=== PATIENT | male | born 1940 | race African-American/Black ===

== ENCOUNTER 2018-11-12 13:59 | Emergency (ER) | payer OTHER ==
[~2018-11-12] VITALS: Ht 177.8 cm; Wt 77.1 kg
[~2018-11-12 13:59] MED LIST: DABI150C PO; FURO20TA3 PO; MAGN400T23 PO; SENN8.6T9 PO; TAMS0.4C36 PO
[2018-11-12 16:14] LABS: Basophils # (auto) 0.1 uL; Basophils % (auto) 1.2 % (0.0-2.0); Eosinophils # (auto) 0.1 uL; Eosinophils % (auto) 1.5 % (0.0-7.0); Hematocrit 49.1 % (41.0-53.0); Hemoglobin 16.4 g/dL (13.5-17.5); Lymphocytes # (auto) 1.2 uL; Lymphocytes % (auto) 19.8 % (10.0-50.0); Mean Corpuscular Hemoglobin 30.1 pg (28.0-32.0); Mean Corpuscular Hgb Conc. 33.4 g/dL (32.0-36.0); Mean Corpuscular Volume 89.9 fL (80.0-100.0); Monocytes # (auto) 0.6 uL; Monocytes % (auto) 10.4 % (0.0-12.0); Neutrophils # (auto) 3.9 uL; Neutrophils % (auto) 67.1 % (37.0-80.0); Nucleated Red Blood Cells % 0.1 %; Platelet Count (auto) 158 10^3/uL (140-450); Red Blood Cells 5.46 10^6/uL (4.5-5.90); Red Cell Distribution Width 14.4 % (11.8-14.3); White Blood Cell 5.9 10^3/uL (4.4-10.8)
[2018-11-12 16:18] LABS: INR 1.12 (0.9-1.15); Partial Thromboplastin Time 28.9 sec (23.78-33.04); Prothrombin Time 11.9 sec (9.27-12.13)
[2018-11-12 16:23] LABS: Albumin 3.5 g/dL (3.4-5.0); Calcium 8.4 mg/dL (8.5-10.1); Potassium 3.9 mmol/L (3.5-5.1)
[2018-11-12 16:25] LABS: BUN/Creatinine Ratio 14.3; Bilirubin, Total 3.1 mg/dL (0.2-1.0); Total Protein 7.3 g/dL (6.4-8.2)
[2018-11-12 17:19] LABS: Urine Bacteria NONE SEEN /hpf (None Seen); Urine Blood Negative /uL (Negative); Urine Mucus FEW (None Seen); Urine Specific Gravity 1.019 (1.001-1.035); Urine WBC 2 /hpf (0 - 3)
[2018-11-12 19:45] VITALS: BP 154/65
== END 2018-11-12 20:55 | disposition home or self-care (01) ==
LOC: EDBD 13:59 → ER 14:05
DX: J44.9 Chronic obstructive pulmonary disease, unspecified (principal); R06.02 Shortness of breath; I13.0 Hypertensive heart and chronic kidney disease with heart failure and stage 1 through stage 4 chronic kidney disease, or unspecified chronic kidney disease; I50.9 Heart failure, unspecified; E11.22 Type 2 diabetes mellitus with diabetic chronic kidney disease; N18.9 Chronic kidney disease, unspecified; I48.91 Unspecified atrial fibrillation; Z87.891 Personal history of nicotine dependence
CPT/HCPCS: 36415; 71045; 80053; 81001; 83880; 84443; 84484; 85025; 85379; 85610; 85730; 93005

== ENCOUNTER 2019-01-12 13:32 | Emergency (ER) | payer SELFPAY ==
[~2019-01-12] VITALS: Ht 185.4 cm; Wt 88.5 kg
[2019-01-12 13:41] VITALS: BP 155/85
[2019-01-12 14:42] LABS: Hemoglobin 14.5 g/dL (13.5-17.5); Mean Corpuscular Volume 91.1 fL (80.0-100.0)
[2019-01-12 14:51] LABS: Albumin 3.1 g/dL (3.4-5.0); Anion Gap 3 (5-15); Aspartate Aminotransferase 21 U/L (15-37); BUN/Creatinine Ratio 11.7; Basophils # (auto) 0 uL; Basophils % (auto) 0.3 % (0.0-2.0); Blood Urea Nitrogen 14 mg/dL (7-18); Calcium 7.9 mg/dL (8.5-10.1); Carbon Dioxide 32 mmol/L (21-32); Chloride 106 mmol/L (98-107); Eosinophils # (auto) 0.2 uL; Eosinophils % (auto) 3.1 % (0.0-7.0); GFR African American 76 mL/min; GFR Non-African American 63 mL/min; Glucose 64 mg/dL (74-106); Hematocrit 43.5 % (41.0-53.0); Lymphocytes # (auto) 1.1 uL; Lymphocytes % (auto) 19.7 % (10.0-50.0); Magnesium 2.2 mg/dL (1.6-2.6); Mean Corpuscular Hemoglobin 30.4 pg (28.0-32.0); Mean Corpuscular Hgb Conc. 33.3 g/dL (32.0-36.0); Monocytes # (auto) 0.9 uL; Monocytes % (auto) 15.7 % (0.0-12.0); Neutrophils # (auto) 3.3 uL; Neutrophils % (auto) 61.2 % (37.0-80.0); Nucleated Red Blood Cells % 0.1 %; Platelet Count (auto) 147 10^3/uL (140-450); Potassium 3.2 mmol/L (3.5-5.1); Red Blood Cells 4.78 10^6/uL (4.5-5.90); Red Cell Distribution Width 14.6 % (11.8-14.3); Sodium 141 mmol/L (136-145); White Blood Cell 5.4 10^3/uL (4.4-10.8)
[2019-01-12] MEDS ORDERED: ASPirin 81 mg TAB PO ONE (15:00)
[2019-01-12 15:02] LABS: Alanine Aminotransferase 15 U/L (16-61); Alkaline Phosphatase 64 U/L (45-117); Bilirubin, Total 1.6 mg/dL (0.2-1.0); Total Protein 6.5 g/dL (6.4-8.2)
[2019-01-12 15:24] LABS: INR 1.22 (0.9-1.15); Partial Thromboplastin Time 43.3 sec (23.78-33.04); Prothrombin Time 12.9 sec (9.27-12.13)
== END 2019-01-12 19:55 | disposition left against medical advice (07) ==
LOC: EDBD 13:32 → ER 13:32
DX: R07.89 Other chest pain (principal); I48.91 Unspecified atrial fibrillation; E87.6 Hypokalemia; J44.9 Chronic obstructive pulmonary disease, unspecified; I11.0 Hypertensive heart disease with heart failure; I50.9 Heart failure, unspecified
CPT/HCPCS: 36415; 71046; 80053; 83735; 83880; 84443; 84484; 85025; 85610; 85730; 94761

== ENCOUNTER 2019-02-26 10:24 | Emergency (ER) | payer OTHER ==
[~2019-02-26] VITALS: Ht 177.8 cm; Wt 113.4 kg
[2019-02-26 10:27] VITALS: BP 139/99
[2019-02-26 11:37] LABS: Basophils # (auto) 0 uL; Basophils % (auto) 0.3 % (0.0-2.0); Eosinophils # (auto) 0 uL; Eosinophils % (auto) 1.3 % (0.0-7.0); Hematocrit 39.6 % (41.0-53.0); Hemoglobin 13.2 g/dL (13.5-17.5); Lymphocytes # (auto) 0.8 uL; Lymphocytes % (auto) 20.1 % (10.0-50.0); Mean Corpuscular Hemoglobin 30.7 pg (28.0-32.0); Mean Corpuscular Hgb Conc. 33.4 g/dL (32.0-36.0); Mean Corpuscular Volume 91.9 fL (80.0-100.0); Monocytes # (auto) 0.4 uL; Monocytes % (auto) 10.3 % (0.0-12.0); Neutrophils # (auto) 2.6 uL; Nucleated Red Blood Cells % 0.1 %; Platelet Count (auto) 134 10^3/uL (140-450); Red Blood Cells 4.31 10^6/uL (4.5-5.90); Red Cell Distribution Width 14.8 % (11.8-14.3); White Blood Cell 3.8 10^3/uL (4.4-10.8)
[2019-02-26 12:10] LABS: Albumin 3.1 g/dL (3.4-5.0); Anion Gap 6 (5-15); Aspartate Aminotransferase 24 U/L (15-37); BUN/Creatinine Ratio 12.3; Blood Urea Nitrogen 16 mg/dL (7-18); Calcium 7.8 mg/dL (8.5-10.1); Carbon Dioxide 30 mmol/L (21-32); Chloride 109 mmol/L (98-107); GFR African American 69 mL/min; GFR Non-African American 57 mL/min; Glucose 86 mg/dL (74-106); Magnesium 2.6 mg/dL (1.6-2.6); Potassium 4.1 mmol/L (3.5-5.1); Sodium 145 mmol/L (136-145)
[2019-02-26 12:15] LABS: Alanine Aminotransferase 18 U/L (16-61); Alkaline Phosphatase 64 U/L (45-117); Bilirubin, Total 1.3 mg/dL (0.2-1.0); Total Protein 6.3 g/dL (6.4-8.2)
== END 2019-02-26 18:34 | disposition left against medical advice (07) ==
LOC: EDBD 10:24 → ER 10:28
DX: I48.92 Unspecified atrial flutter (principal); I13.0 Hypertensive heart and chronic kidney disease with heart failure and stage 1 through stage 4 chronic kidney disease, or unspecified chronic kidney disease; I50.30 Unspecified diastolic (congestive) heart failure; N18.9 Chronic kidney disease, unspecified; E11.22 Type 2 diabetes mellitus with diabetic chronic kidney disease; J44.9 Chronic obstructive pulmonary disease, unspecified
CPT/HCPCS: 36415; 70450; 71045; 80053; 83735; 84484; 85025; 93005

== ENCOUNTER 2019-04-15 10:59 | Emergency (ER) | payer OTHER ==
[~2019-04-15] VITALS: Ht 177.8 cm; Wt 112.0 kg
[2019-04-15 11:42] LABS: Basophils # (auto) 0 uL; Basophils % (auto) 0.6 % (0.0-2.0); Eosinophils # (auto) 0 uL; Eosinophils % (auto) 1.2 % (0.0-7.0); Hematocrit 48.2 % (41.0-53.0); Hemoglobin 16.2 g/dL (13.5-17.5); Lymphocytes # (auto) 0.9 uL; Lymphocytes % (auto) 25.5 % (10.0-50.0); Mean Corpuscular Hemoglobin 30.4 pg (28.0-32.0); Mean Corpuscular Hgb Conc. 33.7 g/dL (32.0-36.0); Mean Corpuscular Volume 90.2 fL (80.0-100.0); Monocytes # (auto) 0.3 uL; Monocytes % (auto) 8.1 % (0.0-12.0); Neutrophils # (auto) 2.3 uL; Neutrophils % (auto) 64.6 % (37.0-80.0); Nucleated Red Blood Cells % 0.1 %; Platelet Count (auto) 143 10^3/uL (140-450); Red Blood Cells 5.35 10^6/uL (4.5-5.90); Red Cell Distribution Width 13.8 % (11.8-14.3); White Blood Cell 3.6 10^3/uL (4.4-10.8)
[2019-04-15] MEDS ORDERED: IPRATROPIUM BROM 0.5 MG/2.5ML INH SOL NEB ONE (11:45)
[2019-04-15] MEDS ORDERED: ALBUTEROL SULF 2.5 MG/0.5ML(0.5%) NEB SOLN NEB ONE (11:45)
[2019-04-15] MEDS ORDERED: FUROSEMIDE 20 MG/2 ML VIAL IV ONE (11:45)
[2019-04-15 11:52] LABS: Albumin 3.4 g/dL (3.4-5.0); Anion Gap 7 (5-15); Calcium 8.6 mg/dL (8.5-10.1); Carbon Dioxide 26 mmol/L (21-32); Chloride 109 mmol/L (98-107); Glucose 107 mg/dL (74-106); Magnesium 2.4 mg/dL (1.6-2.6); Potassium 3.3 mmol/L (3.5-5.1); Sodium 142 mmol/L (136-145)
[2019-04-15 12:00] LABS: Alanine Aminotransferase 13 U/L (16-61); Alkaline Phosphatase 61 U/L (45-117); Aspartate Aminotransferase 19 U/L (15-37); Bilirubin, Total 1.8 mg/dL (0.2-1.0); Blood Urea Nitrogen 15 mg/dL (7-18); GFR African American 66 mL/min; GFR Non-African American 54 mL/min; Total Protein 6.8 g/dL (6.4-8.2)
[2019-04-15 12:03] LABS: INR 1.37 (0.9-1.15); Partial Thromboplastin Time 49.6 sec (23.64-32.05)
[2019-04-15] MEDS ORDERED: POTASSIUM CHL 20 Meq TABLET PO ONE (12:45)
[2019-04-15 12:52] LABS: Urine Bacteria NONE SEEN /hpf (None Seen); Urine Blood Negative /uL (Negative); Urine Mucus FEW (None Seen); Urine WBC 6 /hpf (0 - 3)
[2019-04-15] MEDS ORDERED: METOPROLOL TARTRATE 25 MG TAB PO ONE (13:30)
[2019-04-15 14:07] VITALS: BP 125/79
== END 2019-04-15 15:39 | disposition home or self-care (01) ==
LOC: ER 11:00
DX: J44.1 Chronic obstructive pulmonary disease with (acute) exacerbation (principal); I70.0 Atherosclerosis of aorta; E87.6 Hypokalemia; D68.9 Coagulation defect, unspecified; I48.91 Unspecified atrial fibrillation; I13.0 Hypertensive heart and chronic kidney disease with heart failure and stage 1 through stage 4 chronic kidney disease, or unspecified chronic kidney disease; E11.22 Type 2 diabetes mellitus with diabetic chronic kidney disease; N18.9 Chronic kidney disease, unspecified; I50.9 Heart failure, unspecified; Z79.899 Other long term (current) drug therapy
CPT/HCPCS: 36415; 71045; 80053; 81001; 83735; 83880; 84484; 85025; 85379; 85610; 85730; 93005; 94640; 96374; 99284; J1940; J7611; J7644

== ENCOUNTER 2019-05-31 12:28 | Inpatient (IN) | payer OTHER ==
--- NOTE | 2019-05-30 23:45 | NUR ---
Fischer catheter dc'd Order to discontinue fischer catheter and replace with 3way for cbi, meatus oozing blood, skin care provided. Fischer dc'd with clean technique following deflation of balloon. Patient tolerated well with no complaints of pain. Attempted to place 3way fischer for cbi, 2 unsuccessful attempts by MARY Gonzales and Germaine to advance catheter for 3way due to obstruction. Pt in severe pain during attempted insertion, afib [id number], patient placed on 2L NC, will medicate for pain and inform Sitter at bedside
[~2019-05-31] VITALS: Ht 177.8 cm; Wt 79.0 kg
[~2019-05-31 12:28] MED LIST changes: -DABI150C PO; +DABI150C5 PO; +SENN1TAB7 PO; -SENN8.6T9 PO
[2019-05-31] MEDS ORDERED: SODIUM CHLORIDE 0.9% 500 ML IV ONE (12:50)
[2019-05-31 13:28] LABS: Basophils # (auto) 0 uL; Basophils % (auto) 0.6 % (0.0-2.0); Eosinophils # (auto) 0 uL; Eosinophils % (auto) 1.2 % (0.0-7.0); Hematocrit 41.3 % (41.0-53.0); Hemoglobin 13.9 g/dL (13.5-17.5); Lymphocytes # (auto) 0.7 uL; Lymphocytes % (auto) 18.7 % (10.0-50.0); Mean Corpuscular Hemoglobin 30.5 pg (28.0-32.0); Mean Corpuscular Hgb Conc. 33.7 g/dL (32.0-36.0); Mean Corpuscular Volume 90.6 fL (80.0-100.0); Monocytes # (auto) 0.5 uL; Monocytes % (auto) 13.1 % (0.0-12.0); Neutrophils # (auto) 2.4 uL; Neutrophils % (auto) 66.4 % (37.0-80.0); Platelet Count (auto) 131 10^3/uL (140-450); Red Blood Cells 4.56 10^6/uL (4.5-5.90); Red Cell Distribution Width 14.7 % (11.8-14.3); White Blood Cell 3.7 10^3/uL (4.4-10.8)
[2019-05-31 13:51] LABS: Albumin 3.1 g/dL (3.4-5.0); Anion Gap 4 (5-15); Blood Urea Nitrogen 17 mg/dL (7-18); Carbon Dioxide 29 mmol/L (21-32); Chloride 109 mmol/L (98-107); Glucose 88 mg/dL (74-106); Potassium 3.4 mmol/L (3.5-5.1); Sodium 142 mmol/L (136-145)
[2019-05-31 13:57] LABS: Alanine Aminotransferase 15 U/L (16-61); Alkaline Phosphatase 55 U/L (45-117); Aspartate Aminotransferase 21 U/L (15-37); GFR African American 68 mL/min; GFR Non-African American 57 mL/min; Total Protein 6.4 g/dL (6.4-8.2)
[2019-05-31] MEDS ORDERED: SODIUM CHLORIDE 0.9% 1,000 ML IV ONE (16:00)
[2019-05-31 17:33] LABS: Urine Bacteria NONE SEEN /hpf (None Seen); Urine Blood 3+ /uL (Negative); Urine Hyaline Cast MOD /lpf (0 - 2); Urine Mucus FEW (None Seen); Urine Specific Gravity 1.025 (1.001-1.035); Urine WBC 30 /hpf (0 - 3)
[2019-05-31] MEDS ORDERED: cefTRIAXone 1GM/50ML D5W 50 ML IV ONE (18:00)
[2019-05-31] MEDS ORDERED: LORazepam 2MG/ML-1ML VIAL IV ONE ×2 (19:25→19:45)
[2019-05-31] MEDS ORDERED: LORazepam 2MG/ML-1ML VIAL ONE (19:26)
[2019-05-31] MEDS ORDERED: IPRATROPIUM BROM 0.5 MG/2.5ML INH SOL NEB ONE (19:45)
[2019-05-31] MEDS ORDERED: ALBUTEROL SULF 2.5 MG/0.5ML(0.5%) NEB SOLN NEB ONE (19:45)
--- NOTE | 2019-05-31 19:45 | NUR ---
Opening Shift Note Assumed care of patient, awake and alert x1. No S/S of distress/SOB on 2L NC or pain. Instructed on POC and to call for assistance PRN, will continue to monitor for changes Q1hr and PRN. Perdomo draining light yellow urine no clots on CBI. Sitter at bedside Addendum: 06/01/19 at 2319 by Sangeeta James RN RN wrong date 06/01 disregard note
[2019-05-31] MEDS ORDERED: SODIUM CHLORIDE 0.9% 1,000 ML IV SCH (20:55)
[2019-05-31] MEDS ORDERED: ONDANSETRON HCL 4 MG/2 ML VIAL IV PRN (21:00)
[2019-05-31] MEDS ORDERED: NITROGLYCERIN 0.4 MG SL TAB SL PRN (21:00)
[2019-05-31] MEDS ORDERED: TAMSULOSIN HYDROCHLORIDE 0.4 MG CAP PO ONE (21:00)
[2019-05-31] MEDS ORDERED: MORPHINE SULF INJ 2 MG/ML SYRINGE 1ML IV PRN (21:00)
[2019-05-31] MEDS ORDERED: hydrALAZINE HCL 20 MG/ML VL IV PRN (21:00)
[2019-05-31] MEDS: DOCUSATE SOD 100 MG CAP PO SCH (21:34)
[2019-05-31 21:44] LABS: Basophils # (auto) 0 uL; Basophils % (auto) 0.1 % (0.0-2.0); Eosinophils # (auto) 0 uL; Hematocrit 41.5 % (41.0-53.0); Lymphocytes # (auto) 0.1 uL; Lymphocytes % (auto) 1.1 % (10.0-50.0); Mean Corpuscular Hemoglobin 30.7 pg (28.0-32.0); Mean Corpuscular Hgb Conc. 33.8 g/dL (32.0-36.0); Mean Corpuscular Volume 90.9 fL (80.0-100.0); Monocytes # (auto) 0.1 uL; Neutrophils # (auto) 9.5 uL; Neutrophils % (auto) 97.8 % (37.0-80.0); Platelet Count (auto) 97 10^3/uL (140-450); Red Blood Cells 4.57 10^6/uL (4.5-5.90); Red Cell Distribution Width 14.6 % (11.8-14.3); White Blood Cell 9.7 10^3/uL (4.4-10.8)
--- NOTE | 2019-05-31 22:32 | NUR ---
Telemetry admit from ER IGNACIOMARGIE Soriano admitted to Telemetry unit . Patient oriented to Sangeeta James RN primary RN, unit, room, bed, and unit policies regarding patient care and visiting hours. Patient now on continuous telemetry monitoring, tele box # [id number] and telemetry reading on arrival to unit is afb 120's. Patient, weighed by bedscale and encouraged to call if they need something. All questions and concerns addressed, patient verbalized understanding. Note: Patient pleasantly confused x1, patient oozing from meatus after traumatic fischer insertion.
[2019-05-31 22:40] VITALS: BP 139/77
--- NOTE | 2019-05-31 23:55 | NUR ---
Called/paged Dr. HERNANDEZ called re:[address] 3[address] fischer for hematuria by CN, patient in severe pain. Waiting for call back. Continue care.
[2019-06-01] MEDS: MORPHINE SULFATE 4 MG/ML SYR/VIAL IV PRN (00:06)
--- NOTE | 2019-06-01 00:35 | NUR ---
MD Called/paged Dr. Gomes recalled after not receiving callback re: consult MD for hematuria regarding second attempt to notify of urologist of inability to place fischer 3way after 2 attempts by Charge nurse. Waiting for call back. Continue care.
--- NOTE | 2019-06-01 00:38 | NUR ---
MD Called/paged Dr. Toro called re:notify of inability to place 3way fischer for cbi after 2 attempts by Charge Janet with assistance from Germaine HERNANDEZ, inability to advance catheter and severe pain causing patient afib to elevate to afib rvr 190's, current heart rate controlled. Order received for cbc stat per md previously ordered, will place order now. Continue care.
--- NOTE | 2019-06-01 00:45 | NUR ---
Rounds Patient sleeping. No S/S of distress/SOB or pain. Will continue to monitor changes q1hr and PRN. Heart rate 98 Aflutter. Sitter at bedside for safety
--- NOTE | 2019-06-01 00:57 | NUR ---
LAB Called lab and informed Liza of pending stat cbc ordered
[2019-06-01 01:27] LABS: Basophils # (auto) 0 uL; Basophils % (auto) 0.1 % (0.0-2.0); Eosinophils # (auto) 0 uL; Hematocrit 43.2 % (41.0-53.0); Hemoglobin 14.4 g/dL (13.5-17.5); Lymphocytes # (auto) 0.2 uL; Lymphocytes % (auto) 1.2 % (10.0-50.0); Mean Corpuscular Hemoglobin 30.2 pg (28.0-32.0); Mean Corpuscular Hgb Conc. 33.3 g/dL (32.0-36.0); Mean Corpuscular Volume 90.7 fL (80.0-100.0); Monocytes # (auto) 0.4 uL; Monocytes % (auto) 2.2 % (0.0-12.0); Neutrophils # (auto) 15.5 uL; Neutrophils % (auto) 96.5 % (37.0-80.0); Platelet Count (auto) 100 10^3/uL (140-450); Red Blood Cells 4.77 10^6/uL (4.5-5.90); Red Cell Distribution Width 14.5 % (11.8-14.3)
[2019-06-01] MEDS ORDERED: METOPROLOL TARTRATE 25 MG TAB PO ONE (01:30)
[2019-06-01 02:23] VITALS: BP 139/77
[2019-06-01 05:00] VITALS: BP 108/67
[2019-06-01 05:37] LABS: Basophils # (auto) 0 uL; Basophils % (auto) 0.4 % (0.0-2.0); Eosinophils # (auto) 0.3 uL; Eosinophils % (auto) 3.3 % (0.0-7.0); Hematocrit 44.4 % (41.0-53.0); Hemoglobin 14.9 g/dL (13.5-17.5); Lymphocytes # (auto) 1.5 uL; Lymphocytes % (auto) 15.7 % (10.0-50.0); Mean Corpuscular Hemoglobin 30.6 pg (28.0-32.0); Mean Corpuscular Hgb Conc. 33.6 g/dL (32.0-36.0); Mean Corpuscular Volume 91.2 fL (80.0-100.0); Monocytes # (auto) 0.6 uL; Monocytes % (auto) 6.2 % (0.0-12.0); Neutrophils # (auto) 6.9 uL; Neutrophils % (auto) 74.4 % (37.0-80.0); Nucleated Red Blood Cells % 0.1 %; Platelet Count (auto) 195 10^3/uL (140-450); Red Blood Cells 4.87 10^6/uL (4.5-5.90); Red Cell Distribution Width 13.9 % (11.8-14.3); White Blood Cell 9.3 10^3/uL (4.4-10.8)
[2019-06-01 05:56] LABS: Potassium 3.5 mmol/L (3.5-5.1)
[2019-06-01 06:01] LABS: Calcium 8.7 mg/dL (8.5-10.1)
--- NOTE | 2019-06-01 07:17 | NUR ---
returned call Dr. Gomes returned call, updated on patient status and reason for call, orders received for Coude 18F with lidocaine gel, one attempt only, notify if unsuccessful and pt/inr stat. Endorsed order to day Amrik Bartholomew. Continue care.
--- NOTE | 2019-06-01 07:40 | NUR ---
Called/paged Dr. Gomes called re:verify if he wants to continue CBI order if attempt is successful . Waiting for call back. Continue care. Endorsed to [place] to call back in 30 minutes if no call back per answering system instructions.
--- NOTE | 2019-06-01 07:45 | NUR ---
Informed Lab of INR/PT order stat
[2019-06-01 08:10] LABS: INR 0.99 (0.9-1.15)
[2019-06-01 09:00] VITALS: BP 104/72
[2019-06-01] MEDS ORDERED: LIDOCAINE 2% JELLY 11ml (GLYDO) UR ONE (09:45)
[2019-06-01] MEDS: MAGNESIUM OXIDE 400 MG TAB PO SCH (11:34)
[2019-06-01] MEDS: METOPROLOL TARTRATE 25 MG TAB PO SCH ×2 (11:34→21:34)
--- NOTE | 2019-06-01 11:50 | NUR ---
Dr. Mehta at bedside Patient on continuous bladder irrigation. Urine is hematuric, patient is expressing red blood around the catheter at the site of the penis. This was brought to the attention of the physician. Patient is having no pain at this time. Doctor would like to clamp the irrigation at this time and discharge the patient home with home health. Will continue to monitor Q1h and PRN.
[2019-06-01] MEDS ORDERED: TAM04C PO (11:52)
[2019-06-01] MEDS ORDERED: MET25T PO (11:52)
--- NOTE | 2019-06-01 12:05 | NUR ---
Patient is very uncomfortable, squirming in pain, feels like he has to "piss" as he states. He states "oh lord this hurts." Patient is feeling pressure in the bladder region. Had to manually irrigate and flush the catheter, it was no longer running. Once the clot was irrigated the patient was more comfortable. Restarted the bladder irrigation per Dr. Mehta. He said to "run it for another half hour and then discharge the patient." Will continue with this plan of care.
--- NOTE | 2019-06-01 12:45 | NUR ---
Patient is squirming and uncomfortable, he state "I gotta piss, this hurts so bad." The continuous bladder irrigation was running but there was no output. Had to manually flush the catheter to express blood clot. Patient states "oh thank you, that is feeling much better." Continued bladder irrigation, running hematuric urine.
[2019-06-01 13:00] VITALS: BP 107/67
--- NOTE | 2019-06-01 13:15 | NUR ---
Patient is squirming in bed states "I can't take this" he is pulling at this catheter, "I have to piss." There is no output from the fischer catheter. This RN called the railroad signal technician, Shahnaz for assistance with the catheter. She assisted in manually flushing the catheter and was able to express a moderate size blood clot from the catheter. The patient is tolerating the procedure well, though uncomfortable. The patient is beginning to become more anxious stating "I can't take this." This RN explained the procedure to the patient and everything we are doing to help him. The patient states "I understand, thank you for all you do." Patient has periods of anxiety and confusion.
--- NOTE | 2019-06-01 14:10 | NUR ---
Paged Dr. Chandrakant Gomes- urology In regards to patient CBI and 4 attempts at manually flushing the blood clots from the catheter.
--- NOTE | 2019-06-01 14:38 | NUR ---
Dr. Gomes -urology returned page Dr. Gomes is not comfortable discharging the patient at this time. He would like to continue the CBI and possible do surgery and scope the patient on Monday.
--- NOTE | 2019-06-01 15:35 | NUR ---
Spoke to Dr. Mehta Updated him on Dr. Gomes, urology not wanting to discharge at this time and possible scope on Monday, and regarding the many times the fischer had to be manually flushed for blood clots, the urine bladder irrigation is much more clear at this point in time, slight tinge red. Dr. Mehta would like to keep the bladder irrigation going, and update him at 5:00pm regarding fischer catheter irrigation status, he would still like to discharge the patient possibly tonight.
--- NOTE | 2019-06-01 15:39 | NUR ---
PLEASE HOLD DISCHARGE PER DR. DIPAK HERNANDEZ. Patient catheter clotting, needs manual irrigation 5 times to move blood clots.
[2019-06-01 17:00] VITALS: BP 133/86
--- NOTE | 2019-06-01 18:30 | NUR ---
CELENA reported elevated Heart rate Report of patient heart rate 170, went to check on patient, the patient is lying still no s/s of distress. Checked patient CBI catheter, it was kinked, adjusted catheter and drained bag. Rechecked HR, it was at 103. Will continue to monitor patient Q1h and PRN.
--- NOTE | 2019-06-01 19:30 | NUR ---
Gave report to SKYLER Rutherford Patient CBI is still running, patient has had 6 bags of irrigation fluid today. Patient is starting to become a little more short of breath at this time, notified RN that patient reported being on Lasix at home, he is not on Lasix during this admission. The irrigated urine output fluid is still pink in the catheter bag, and passing occasional blood clots. There is still red blood that is passing around the meatus around the catheter. Dr. Mueller was notified during patient rounding. Patient is otherwise comfortable at this time. No s/s of distress at the end of this shift.
--- NOTE | 2019-06-01 19:45 | NUR ---
Opening Shift Note Assumed care of patient, awake and alert x1. No S/S of distress/SOB on 2L NC or pain. Instructed on POC and to call for assistance PRN, will continue to monitor for changes Q1hr and PRN. Perdomo draining light yellow urine no clots on CBI. Sitter at bedside
--- NOTE | 2019-06-01 21:00 | NUR ---
IV insertion IV access obtained, via clean sterile technique by inserting 22 gauge catheter at right forearm after 1 attempt(s). IV secured properly. No trauma to site. Patient tolerated well. NOTE:
[2019-06-01 22:00] VITALS: BP 147/84
[2019-06-01] MEDS: DOCUSATE SOD 100 MG CAP PO SCH (22:00)
--- NOTE | 2019-06-01 22:00 | NUR ---
MD Called/paged Dr. Powers called re:patient agitation, afib hr 190's-200 when trying to get up at rest 120's, patient confused, sitter at bedside. Waiting for call back. Orders received, will medicate as ordered. Continue care.
[2019-06-01] MEDS: LORazepam 2MG/ML-1ML VIAL IV PRN (22:29)
[2019-06-02] VITALS (7 sets, daily range): BP systolic 108–142; BP diastolic 68–92
--- NOTE | 2019-06-02 00:15 | NUR ---
Rounds Patient awake and alert x1. Patient anxious trying to pull at fischer catheter, hematuria present after pulling, pt removing oxygen placed back on 02 3L NC o2 100%, sitter at bedside. vs wnl bp 129/82 HR 104 bp 129/92 R 16. Will continue to monitor changes q1hr and PRN. Will medicate as ordered
[2019-06-02] MEDS: TEMAZEPAM 15 MG CAP PO PRN (00:25)
--- NOTE | 2019-06-02 01:35 | NUR ---
Rounds Patient sleeping, arousable to voice, pt off mittens at this time. No S/S of distress/SOB or pain. Will continue to monitor changes q1hr and PRN. CBI bags changed, urine yellow clear at this time. Sitter at bedside
--- NOTE | 2019-06-02 05:15 | NUR ---
Patient bathe/linen change Patient given bath. Skin integrity assessed for any changes. Linens and gown changed. Patient repositioned for comfort. Sitter at bedside. CBI draining, urine yellow with hematuria present, no clots. Pt on 3LNC, no distress noted
--- NOTE | 2019-06-02 07:40 | NUR ---
Desmond paged to deliver additional cbi saline bags, states she will come after she moves patient
--- NOTE | 2019-06-02 08:05 | NUR ---
Opening Note Assumed care of patient. He is A & O x3, he is calm and relaxed at this time, no s/s of distress. Patient breathing appears to be more labored but not in any distress at this time, oxygen saturation is 100 % on 2 L. Lung sounds are diminished in the posterior bilateral bases. Patient is otherwise comfortable at this time. CBI is running, output is still light red in color with minimal clotting.Sitter is at bedside. Bed is in low, locked position, call light within reach. Will continue to monitor Q1h and PRN.
--- NOTE | 2019-06-02 08:45 | NUR ---
Paged Dr. Mehta Made contact regarding patient HR according to police pilot, had periods of heart rate in high 170 range, patient was anxious, was giving Ativan last night. When patient sat up to eat, audible wheezes were heard by this RN. There is continued bleeding around the catheter meatal area that is bright read blood, oozing. Patient is in no distress at this time. Will await orders.
[2019-06-02 09:16] LABS: Basophils # (auto) 0 uL; Basophils % (auto) 0.3 % (0.0-2.0); Eosinophils # (auto) 0.1 uL; Eosinophils % (auto) 0.5 % (0.0-7.0); Hematocrit 39.2 % (41.0-53.0); Hemoglobin 13.1 g/dL (13.5-17.5); Lymphocytes # (auto) 0.3 uL; Lymphocytes % (auto) 2.5 % (10.0-50.0); Mean Corpuscular Hemoglobin 30.3 pg (28.0-32.0); Mean Corpuscular Hgb Conc. 33.3 g/dL (32.0-36.0); Mean Corpuscular Volume 90.9 fL (80.0-100.0); Monocytes # (auto) 0.4 uL; Monocytes % (auto) 3.7 % (0.0-12.0); Neutrophils # (auto) 9.9 uL; Nucleated Red Blood Cells % 0.1 %; Platelet Count (auto) 77 10^3/uL (140-450); Red Blood Cells 4.32 10^6/uL (4.5-5.90); Red Cell Distribution Width 14.8 % (11.8-14.3); White Blood Cell 10.7 10^3/uL (4.4-10.8)
[2019-06-02 09:35] LABS: Albumin 2.8 g/dL (3.4-5.0); BUN/Creatinine Ratio 15.1; Calcium 7.8 mg/dL (8.5-10.1); Potassium 3.7 mmol/L (3.5-5.1)
[2019-06-02 09:38] LABS: Bilirubin, Total 2.8 mg/dL (0.2-1.0); Total Protein 5.7 g/dL (6.4-8.2)
[2019-06-02] MEDS: MAGNESIUM OXIDE 400 MG TAB PO SCH (10:52)
[2019-06-02] MEDS: METOPROLOL TARTRATE 25 MG TAB PO SCH ×2 (10:52→21:45)
[2019-06-02] MEDS: BUDESONIDE (INHALATION) 0.5 MG/2 ML NEB NEB SCH ×2 (11:02→21:57)
--- NOTE | 2019-06-02 11:07 | NUR ---
Dr. Mehta at bedside Urine was clearing up, running yellow in color, clear. Doctor request to stop CBI and report if there is any retention or continued bleeding.
[2019-06-02] MEDS ORDERED: ALBUTEROL SULF 2.5 MG/0.5ML(0.5%) NEB SOLN NEB SCH (12:00)
[2019-06-02] MEDS ORDERED: IPRATROPIUM BROM 0.5 MG/2.5ML INH SOL NEB SCH (12:00)
--- NOTE | 2019-06-02 12:15 | NUR ---
Called Dr. Mehta Patient squirming in pain "oh shit, this hurts, I can't take this" and patient heart rate increased to 135, after CBI had been stopped, this RN started CBI once again and there was hematuria returning to the catheter with small blood clots. Patient much more comfortable after procedure. Dr. Mehta ordered to continue CBI and notify Dr. Gomes. Will follow thorough with orders.
[2019-06-02] MEDS ORDERED: SERT-376 PO (12:59)
[2019-06-02] MEDS ORDERED: DONE10TA40 PO (13:00)
[2019-06-02] MEDS: DILTIAZEM HCL 60 MG TAB GT SCH ×2 (15:27→21:47)
--- NOTE | 2019-06-02 16:00 | NUR ---
Dr. Gomes , urology at bedside. There will be a procedure tomorrow. Patient said "okay." Need the son to sign consents, patient has a history of dementia and current periods of confusion. His son is Thee Price [phone]. Will have them signed when orders for procedure are placed.
--- NOTE | 2019-06-02 18:40 | NUR ---
Called Thee Price, son of patient Updated him on status of patient to have procedure tomorrow, asked him if he is available in the morning to come and sign consents, he stated "yes." Asked if he is available around 8 am, he stated "yes." There is no order for procedure at this time. Will inform noc shift nurse.
--- NOTE | 2019-06-02 18:50 | NUR ---
Paged Dr. Chandrakant Gomes regarding the need for orders for the procedure tomorrow.
--- NOTE | 2019-06-02 19:30 | NUR ---
Opening Shift Note Report received from day shift RN. Assumed care of patient. Patient awake and alert x3. No S/S of distress/SOB noted and patient denies pain at this time. CBI is running, output is light yellow. Sitter is at bedside for safety. Bed is in low, locked position, call light within reach. Instructed on POC and to call for assist PRN, will continue to monitor for changes Q1hr and PRN.
[2019-06-02] MEDS: DOCUSATE SOD 100 MG CAP PO SCH (21:45)
[2019-06-02] MEDS: IPRATROPIUM BROM 0.5 MG/2.5ML INH SOL NEB PRN (21:57)
[2019-06-02] MEDS: ALBUTEROL SULF 2.5 MG/0.5ML(0.5%) NEB SOLN NEB PRN (21:57)
[2019-06-03 05:00] VITALS: BP 141/91
[2019-06-03 05:24] LABS: Basophils # (auto) 0 uL; Basophils % (auto) 0.5 % (0.0-2.0); Eosinophils # (auto) 0.1 uL; Eosinophils % (auto) 0.9 % (0.0-7.0); Hematocrit 37.3 % (41.0-53.0); Hemoglobin 12.7 g/dL (13.5-17.5); Lymphocytes # (auto) 0.5 uL; Lymphocytes % (auto) 5.9 % (10.0-50.0); Mean Corpuscular Hemoglobin 30.8 pg (28.0-32.0); Mean Corpuscular Hgb Conc. 34.1 g/dL (32.0-36.0); Mean Corpuscular Volume 90.3 fL (80.0-100.0); Monocytes # (auto) 0.7 uL; Monocytes % (auto) 8.6 % (0.0-12.0); Neutrophils # (auto) 7.1 uL; Neutrophils % (auto) 84.1 % (37.0-80.0); Platelet Count (auto) 75 10^3/uL (140-450); Red Blood Cells 4.13 10^6/uL (4.5-5.90); Red Cell Distribution Width 14.6 % (11.8-14.3); White Blood Cell 8.4 10^3/uL (4.4-10.8)
[2019-06-03 05:43] LABS: BUN/Creatinine Ratio 17.7; Magnesium 2.4 mg/dL (1.6-2.6); Potassium 3.7 mmol/L (3.5-5.1)
[2019-06-03] MEDS: DILTIAZEM HCL 60 MG TAB GT SCH ×3 (06:04→22:18)
--- NOTE | 2019-06-03 08:00 | NUR ---
Opening Shift Note Assumed care of patient, awake, alert and oriented X2, to self and surroundings. No S/S of distress/SOB or pain. Tele# 30, sinus bradycardia @ 58 bpm. IV to right forearm, 22 gauge, patent and saline locked. 3 way Perdomo catheter draining clear, yellow urine via CBI, no clots noted. Instructed on POC and to call for assist PRN, verbalized understanding but requires frequent reorienting secondary to forgetfulness. Bed locked, in lowest position, call light within reach, sitter remains at bedside for patient safety, will continue to monitor for changes Q1hr and PRN.
--- NOTE | 2019-06-03 08:02 | NUR ---
INTAKE: 3 IRRIGATION BAGS TOTALING 9000 MLS OUTPUT: 42486 MLS OF CLEAR LIGHT YELLOW FLUID
[2019-06-03 09:00] VITALS: BP 144/72
--- NOTE | 2019-06-03 09:14 | NUR ---
CBI Call received from Dr Mehta, informed CBI drainage is clear light yellow without clots. Oder received to clamp and see if patient is able to tolerate. Order followed through.
[2019-06-03] MEDS: MAGNESIUM OXIDE 400 MG TAB PO SCH (09:57)
[2019-06-03] MEDS: IPRATROPIUM BROM 0.5 MG/2.5ML INH SOL NEB PRN ×3 (09:58→23:13)
[2019-06-03] MEDS: BUDESONIDE (INHALATION) 0.5 MG/2 ML NEB NEB SCH ×2 (09:58→23:13)
[2019-06-03] MEDS: ALBUTEROL SULF 2.5 MG/0.5ML(0.5%) NEB SOLN NEB PRN ×3 (09:58→23:14)
[2019-06-03] MEDS: METOPROLOL TARTRATE 25 MG TAB PO SCH ×2 (10:35→22:19)
--- NOTE | 2019-06-03 10:45 | NUR ---
ROUNDS Dr Mehta at bedside for rounds, new order received to resume CBI. Order followed through.
[2019-06-03] MEDS: MORPHINE SULFATE 4 MG/ML SYR/VIAL IV PRN ×2 (12:04→23:38)
[2019-06-03 12:31] LABS: Potassium 3.5 mmol/L (3.5-5.1)
[2019-06-03 12:49] LABS: Albumin 2.7 g/dL (3.4-5.0); BUN/Creatinine Ratio 16.7; Bilirubin, Total 2.2 mg/dL (0.2-1.0); Calcium 7.9 mg/dL (8.5-10.1)
[2019-06-03 13:00] VITALS: BP 135/98
--- NOTE | 2019-06-03 14:27 | NUR ---
Patient taken to Pre-Op via bed, CBI running to gravity with clear, yellow urine. No distress noted upon departure.
[2019-06-03] MEDS ORDERED: CIPROFLOXACIN 400MG/200ML 200 ML IV ONE (14:36)
[2019-06-03] MEDS ORDERED: fentaNYL CITRATE 100 MCG/2 ML VL ONE (14:41)
[2019-06-03] MEDS ORDERED: MIDAZOLAM HCL 1MG/1ML-2 ML VIAL ONE (14:41)
[2019-06-03] MEDS ORDERED: SODIUM CHLORIDE LOCK 10 ML ONE (14:42)
[2019-06-03] MEDS ORDERED: PROPOFOL 10 MG/ML 20 ML IV ONE (14:42)
[2019-06-03] MEDS ORDERED: ONDANSETRON HCL 4 MG/2 ML VIAL ONE (14:42)
[2019-06-03] MEDS ORDERED: fentaNYL CITRATE 100 MCG/2 ML VL IV PRN (15:15)
[2019-06-03] MEDS ORDERED: ACCU-CHEK COMFORT CURVE STRIP VI ONE (15:15)
[2019-06-03] MEDS ORDERED: METOCLOPRAMIDE HCL 5MG/ml INJ 2ml VIAL IV PRN (15:15)
[2019-06-03] MEDS ORDERED: HYDROmorphone HCL 2 MG/ML VL IV PRN (15:15)
--- NOTE | 2019-06-03 16:52 | NUR ---
D/C planning Per consult for home health safety evaluation, RN visit, and fischer care. Contacted [facility] health Ph: ) fax: ) faxed medical records. Per Earline from [facility] pt has been accepted and will be seen within 48 hrs upon d/c. Informed Earline from [facility] will follow up tomorrow morning with authorization #. Addendum: 06/03/19 at 1655 by MICHAEL FARIAS Amended: Links added.
--- NOTE | 2019-06-03 17:15 | NUR ---
Patient returned from OR via bed, very lethargic but easily arousable to name. V/S 118/78 P 84 RR 18 O2@ 3 LPM 98% Temp 97.8 CBI running to gravity with light pink drainage, no clots noted. Sitter remains at bedside for patient safety.
[2019-06-03 17:18] VITALS: BP 118/78
--- NOTE | 2019-06-03 19:23 | NUR ---
Care endorsed to SKYLER Blackburn, night nurse.
--- NOTE | 2019-06-03 20:00 | NUR ---
[id number] PATIENT FROM DAY SHIFT RN. PATIENT RESTING IN BED. NO S/S OF DISTRESS NOTED. DENIED PAIN FOR NOW. CBI CONTINUED WITH BRIGHT RED URINE OUT, INCREASED RATE OF CBI. REORIENTED PATIENT TIME AND SITUATION. WILL CONTINUE TO REORIENT HIM. POC INSTRUCTED AND ENCOURAGED PATIENT TO CALL FOR CARPET INSTALLER HELPER IF NEEDED. BED IN LOWEST POSITION WITH SIDE RAILS UP X 2. CALL JAMISON WITHIN REACH. ALARM ON. SITTER AT BEDSIDE FOR SAFETY. CONTINUE TO MONITOR FOR CHANGES Q1H AND PRN.
[2019-06-03 22:00] VITALS: BP 106/73
[2019-06-03] MEDS: DOCUSATE SOD 100 MG CAP PO SCH (22:18)
--- NOTE | 2019-06-03 22:20 | NUR ---
ORAL MEDICATION GIVEN ORDERED. PATIENT SWALLOWED WELL. NO S/S OF ASPIRATION NOTED. CBI RUNNING WELL WITH CLEAR AND PINK URINE. DECREASED RATE OF CBI. CONTINUE TO MONITOR.
--- NOTE | 2019-06-03 23:39 | NUR ---
PATIENT C/O BACK PAIN @ 07/25. MEDICATED PATIENT ORDERED. CONTINUE TO MONITOR.
[2019-06-04] MEDS: TEMAZEPAM 15 MG CAP PO PRN ×2 (01:55→22:16)
--- NOTE | 2019-06-04 02:52 | NUR ---
PATIENT RESTING IN BED. NO S/S OF DISTRESS NOTED. CBI RUNNING CLEAR AND PINK URINE. REORIENTED PATIENT PLACE, TIME AND SITUATION. SITTER AT BEDSIDE FOR SAFETY. CONTINUE CARE.
[2019-06-04 07:48] LABS: Basophils # (auto) 0 uL; Basophils % (auto) 0.3 % (0.0-2.0); Eosinophils # (auto) 0.1 uL; Hematocrit 39.1 % (41.0-53.0); Hemoglobin 13.1 g/dL (13.5-17.5); Lymphocytes # (auto) 0.6 uL; Lymphocytes % (auto) 7.9 % (10.0-50.0); Mean Corpuscular Hemoglobin 30.5 pg (28.0-32.0); Mean Corpuscular Hgb Conc. 33.5 g/dL (32.0-36.0); Mean Corpuscular Volume 90.8 fL (80.0-100.0); Monocytes # (auto) 0.8 uL; Monocytes % (auto) 9.6 % (0.0-12.0); Neutrophils # (auto) 6.6 uL; Neutrophils % (auto) 81.2 % (37.0-80.0); Platelet Count (auto) 89 10^3/uL (140-450); Red Cell Distribution Width 14.5 % (11.8-14.3); White Blood Cell 8.2 10^3/uL (4.4-10.8)
--- NOTE | 2019-06-04 08:00 | NUR ---
Opening Shift Note Assumed care of patient, awake, alert and oriented X2, to self and surroundings. No S/S of distress/SOB or pain. Tele# 30, Atrial Flutter @ 55 bpm. IV to left hand, 20, gauge, patent and saline locked. 3 way Perdomo catheter draining clear, light pink urine to gravity via CBI, no clots noted. Instructed on POC and to call for assist PRN, verbalized understanding but requires frequent reorienting secondary to forgetfulness. Bed locked, in lowest position, call light within reach, sitter remains at bedside for patient safety, will continue to monitor for changes Q1hr and PRN.
[2019-06-04 08:02] LABS: Calcium 8.2 mg/dL (8.5-10.1); Magnesium 2.2 mg/dL (1.6-2.6); Potassium 3.7 mmol/L (3.5-5.1)
[2019-06-04 08:04] LABS: BUN/Creatinine Ratio 13.7
[2019-06-04 09:00] VITALS: BP 140/91
[2019-06-04] MEDS: METOPROLOL TARTRATE 25 MG TAB PO SCH ×3 (10:00→22:15)
[2019-06-04] MEDS: BELLADONNA ALKAL/OPIUM (16.2/30MG) RECT SUPP PR SCH (10:00)
--- NOTE | 2019-06-04 10:15 | NUR ---
Call received from Dr Mehta, order received to clamp CBI as long as patient is able to tolerate. CBI continues to drain clear yellow urine to gravity. CBI clamped, will monitor. Sitter remains at bedside for patient safety.
--- NOTE | 2019-06-04 10:50 | NUR ---
Called to room by sitter, patient becoming very agitated, thrashing in bed, Perdomo drainage now bright red, restarted CBI, medicated for pain, will continue to monitor. Sitter remains at bedside for patient safety.
--- NOTE | 2019-06-04 11:05 | NUR ---
ROUNDS Dr Lira at bedside for rounds, informed patient unable to tolerate CBI being clamped and drainage changed to bright red when clamped, verbalized understanding.
[2019-06-04] MEDS: MAGNESIUM OXIDE 400 MG TAB PO SCH (11:09)
[2019-06-04] MEDS: MORPHINE SULFATE 4 MG/ML SYR/VIAL IV PRN ×3 (11:10→21:04)
[2019-06-04] MEDS: BUDESONIDE (INHALATION) 0.5 MG/2 ML NEB NEB SCH ×2 (12:06→22:40)
[2019-06-04] MEDS: IPRATROPIUM BROM 0.5 MG/2.5ML INH SOL NEB PRN ×2 (12:06→22:40)
[2019-06-04] MEDS: ALBUTEROL SULF 2.5 MG/0.5ML(0.5%) NEB SOLN NEB PRN ×2 (12:06→22:40)
--- NOTE | 2019-06-04 12:16 | NUR ---
Per request for auth, faxed request to [facility], placed a follow up call, spoke to Echo and was provided the following auth for [facility]-[id number]. Called and spoke to Dayana at [facility] and was advised they will start care within 24-48 hours upon discharge. Addendum: 06/04/19 at 1221 by RANDOLPH DAY Amended: Links added.
[2019-06-04 13:00] VITALS: BP 141/83
[2019-06-04] MEDS: DILTIAZEM HCL 60 MG TAB GT SCH ×2 (14:00→22:15)
--- NOTE | 2019-06-04 14:15 | NUR ---
Returned from lunch, informed by covering nurse, SKYLER Jamison, that patient pulled his IV out, despite sitter at bedside. Patient has moments of confusion and agitation, but is easily reoriented. Sitter remains at the bedside for patient safety.
--- NOTE | 2019-06-04 15:40 | NUR ---
Call received from Dr Myers, Urologist, updated on patients condition, verbalized understanding.
--- NOTE | 2019-06-04 16:35 | NUR ---
IV insertion IV access obtained, via clean sterile technique by inserting 20 gauge catheter at left wrist after 1 attempt. IV secured properly. No trauma to site. Patient tolerated well.
[2019-06-04 17:00] VITALS: BP 140/79
--- NOTE | 2019-06-04 17:45 | NUR ---
Called to room again by maria c, per maria c, patient pulled IV to left wrist out, catheter intact. New IV placed to left wrist, 22 gauge, with sterile technique. Maria C remains at bedside for patient safety.
--- NOTE | 2019-06-04 19:14 | NUR ---
Care endorsed to SKYLER Blackburn, night nurse.
--- NOTE | 2019-06-04 19:48 | NUR ---
[id number] PATIENT FROM DAY SHIFT RN. PATIENT RESTING IN BED. NO S/S OF DISTRESS NOTED. DENIED PAIN FOR NOW. CBI CONTINUED DRAINING GRAVITY WITH CLEAR AND YELLOW URINE. SLOW DOWN THE RATE OF CBI. REORIENTED PATIENT TIME AND SITUATION. WILL CONTINUE TO REORIENT HIM. POC INSTRUCTED AND ENCOURAGED PATIENT TO CALL FOR WATER MECHANIC IF NEEDED. BED IN LOWEST POSITION WITH SIDE RAILS UP X 2. CALL JAMISON WITHIN REACH. ALARM ON. SITTER AT BEDSIDE FOR SAFETY. CONTINUE TO MONITOR FOR CHANGES Q1H AND PRN.
--- NOTE | 2019-06-04 21:04 | NUR ---
PATIENT AGITATED AND C/O BACK PAIN @ 04/24. MEDICATED PATIENT ORDERED. CONTINUE TO MONITOR.
[2019-06-04] MEDS: DOCUSATE SOD 100 MG CAP PO SCH (22:15)
--- NOTE | 2019-06-04 22:16 | NUR ---
ORAL MEDICATION GIVEN ORDERED. PATIENT SWALLOWED WELL. NO S/S OF ASPIRATION NOTED. CBI RUNNING WELL WITH CLEAR AND PINK URINE. INCREASED RATE OF CBI. CONTINUE TO MONITOR.
[2019-06-04 22:19] VITALS: BP 156/98
[2019-06-04] MEDS: LORazepam 2MG/ML-1ML VIAL IV PRN (23:35)
--- NOTE | 2019-06-04 23:35 | NUR ---
RECEIVED CALL FROM [employer], PATIENT HR UP TO 160S, REASSESSED BP 164/89. HR 91. PATIENT AGITATED AND TRIED TO GO OUT OF BED. CALM PATIENT DOWN. AND MEDICATED PATIENT ORDERED. CONTINUE TO MONITOR.
[2019-06-05] VITALS (13 sets, daily range): BP systolic 121–193; BP diastolic 73–112
--- NOTE | 2019-06-05 00:45 | NUR ---
REASSESSED BP 121/73, HR 81, O2 SAT 94% ON RA. PATIENT IS CALM NOW. CONTINUE TO MONITOR.
--- NOTE | 2019-06-05 03:25 | NUR ---
PATIENT RESTING IN BED. NO S/S OF DISTRESS NOTED. CBI CONTINUED WITH CLEAR AND LIGHT PINK URINE OUT. CONTINUE TO MONITOR.
--- NOTE | 2019-06-05 05:24 | NUR ---
CLEANED PATIENT. TOTAL LINEN AND PATIENT GOWN CHANGED. PATIENT TOLERATED WELL. NO S/S OF DISTRESS NOTED. CONTINUE TO MONITOR..
[2019-06-05] MEDS: DILTIAZEM HCL 60 MG TAB GT SCH ×2 (05:50→15:47)
--- NOTE | 2019-06-05 06:28 | NUR ---
PATIENT RESTING IN BED. NO S/S OF DISTRESS NOTED. CBI CONTINUED. TOTAL INPUT 50243 ML, AND OUTPUT CLEAR LIGHT PINK URINE 04300 ML. CONTINUE TO MONITOR.
[2019-06-05 06:53] LABS: Basophils # (auto) 0 uL; Basophils % (auto) 0.5 % (0.0-2.0); Eosinophils # (auto) 0.1 uL; Eosinophils % (auto) 1.1 % (0.0-7.0); Hematocrit 39.3 % (41.0-53.0); Hemoglobin 13.2 g/dL (13.5-17.5); Lymphocytes # (auto) 0.9 uL; Lymphocytes % (auto) 10.9 % (10.0-50.0); Mean Corpuscular Hemoglobin 30.5 pg (28.0-32.0); Mean Corpuscular Hgb Conc. 33.7 g/dL (32.0-36.0); Mean Corpuscular Volume 90.6 fL (80.0-100.0); Monocytes # (auto) 0.9 uL; Monocytes % (auto) 11.5 % (0.0-12.0); Neutrophils # (auto) 6.1 uL; Platelet Count (auto) 105 10^3/uL (140-450); Red Blood Cells 4.34 10^6/uL (4.5-5.90); Red Cell Distribution Width 14.6 % (11.8-14.3)
[2019-06-05 06:57] LABS: Calcium 8.4 mg/dL (8.5-10.1); Magnesium 2.1 mg/dL (1.6-2.6); Potassium 3.6 mmol/L (3.5-5.1)
[2019-06-05 07:00] LABS: BUN/Creatinine Ratio 14.2
[2019-06-05] MEDS: BUDESONIDE (INHALATION) 0.5 MG/2 ML NEB NEB SCH ×2 (10:00→19:41)
[2019-06-05] MEDS: BELLADONNA ALKAL/OPIUM (16.2/30MG) RECT SUPP PR SCH (10:00)
[2019-06-05] MEDS: MORPHINE SULFATE 4 MG/ML SYR/VIAL IV PRN (11:05)
--- NOTE | 2019-06-05 12:03 | NUR ---
UROLOGY Call placed to Dr Gomes per Dr Mehta, to inform patient has been unable to tolerate the CBI being clamped for the past three days, S/P Cystoscopy with blood clot evacuation from the bladder by Dr Gomes. Spoke to Nadege in the Urology clinic, awaiting return call from Dr Gomes. Keiryter remains at bedside for patient safety. CBI continues to run via gravity with clear, pink drainage.
--- NOTE | 2019-06-05 12:39 | NUR ---
ROUNDS Dr Mehta at bedside for rounds, plan of care discussed with patient, verbalized understanding. Sitter remains at bedside for patient safety. CBI continues to drain light red drainage to gravity.
[2019-06-05] MEDS: METOPROLOL TARTRATE 25 MG TAB PO SCH ×2 (12:45→21:56)
[2019-06-05] MEDS: MAGNESIUM OXIDE 400 MG TAB PO SCH (12:45)
--- NOTE | 2019-06-05 13:18 | NUR ---
UROLOGY Call received from Dr Tati Gomes, Urology, communication order received under no circumstance is CBI to be clamped unless order is given by Urology.
[2019-06-05] MEDS ORDERED: LEVOFLOXACIN 500MG 100 ML IV ONE (13:30)
--- NOTE | 2019-06-05 15:37 | NUR ---
Nutrition Assessment Notes please see attached link for complete assessment Est. Needs BW 78 [id number] kcal (25-30 kcal/kgBW), 78-85 gms pro (1.0-1.1 gms/kgBW). Will continue to monitor pertinent labs and reassess nutrient need prn Addendum: 06/05/19 at [address] Amended: Links added.
[2019-06-05] MEDS: LORazepam 2MG/ML-1ML VIAL IV PRN ×2 (15:50→23:33)
[2019-06-05] MEDS: DILTIAZEM HCL 60 MG TAB PO SCH ×2 (16:03→21:55)
--- NOTE | 2019-06-05 19:11 | NUR ---
Care endorsed to SKYLER Blackburn, night nurse.
--- NOTE | 2019-06-05 19:45 | NUR ---
[id number] PATIENT FROM DAY SHIFT RN. PATIENT RESTING IN BED. NO S/S OF DISTRESS NOTED. DENIED PAIN FOR NOW. CBI CONTINUED DRAINING GRAVITY WITH CLEAR AND LIGHT PINK URINE. REORIENTED PATIENT TIME AND SITUATION. WILL CONTINUE TO REORIENT HIM. POC INSTRUCTED AND ENCOURAGED PATIENT TO CALL FOR SPRINKLER TRUCK DRIVER IF NEEDED. BED IN LOWEST POSITION WITH SIDE RAILS UP X 2. CALL JAMISON WITHIN REACH. ALARM ON. SITTER AT BEDSIDE FOR SAFETY. CONTINUE TO MONITOR FOR CHANGES Q1H AND PRN.
--- NOTE | 2019-06-05 21:09 | NUR ---
FFP STARTED. PATIENT INITIAL VITALS, TEMP 98.3, HR 92, DWAYNE 162/98, RR 20. O2 SAT 97% ON RA. PATIENT A LITTLE AGITATED. CALM PATIENT DOWN. CONTINUE TO MONITOR.
[2019-06-05] MEDS: DOCUSATE SOD 100 MG CAP PO SCH (21:55)
[2019-06-05] MEDS: TEMAZEPAM 15 MG CAP PO PRN (21:56)
--- NOTE | 2019-06-05 23:00 | NUR ---
FFP COMPLETED. PATIENT TOLERATED WELL. NO S/S OF DISTRESS NOTED. VITALS STABLE, TEMP 98.7, HR 101, RR 18, BP 148/92. O2 SAT 98% ON RA. CONTINUE TO MONITOR.
--- NOTE | 2019-06-05 23:33 | NUR ---
PATIENT AGITATED, AND TRIED TO GET OUT OF BED AND PULLING IV ACCESS. HR UP TO 170S. MEDICATED PATIENT ORDERED. CONTINUE TO MONITOR.
[2019-06-06] VITALS (10 sets, daily range): BP systolic 125–154; BP diastolic 63–113
--- NOTE | 2019-06-06 03:34 | NUR ---
PATIENT RESTING IN BED. NO S/S OF DISTRESS NOTED. CBI CONTINUED WITH CLEAR AND LIGHT PINK URINE OUT. CONTINUE TO MONITOR.
[2019-06-06] MEDS: DILTIAZEM HCL 60 MG TAB PO SCH ×3 (06:12→22:03)
--- NOTE | 2019-06-06 06:34 | NUR ---
PATIENT RESTING IN BED. NO S/S OF DISTRESS NOTED. CBI CONTINUED. TOTAL INPUT 9000 ML, AND OUTPUT CLEAR LIGHT PINK URINE 9200 ML. CONTINUE TO MONITOR.
[2019-06-06 07:05] LABS: Basophils # (auto) 0 uL; Basophils % (auto) 0.4 % (0.0-2.0); Eosinophils # (auto) 0.1 uL; Eosinophils % (auto) 0.7 % (0.0-7.0); Hematocrit 43.3 % (41.0-53.0); Hemoglobin 14.4 g/dL (13.5-17.5); Lymphocytes # (auto) 1.3 uL; Lymphocytes % (auto) 12.1 % (10.0-50.0); Mean Corpuscular Hemoglobin 30.1 pg (28.0-32.0); Mean Corpuscular Hgb Conc. 33.3 g/dL (32.0-36.0); Mean Corpuscular Volume 90.6 fL (80.0-100.0); Monocytes # (auto) 1.4 uL; Monocytes % (auto) 12.7 % (0.0-12.0); Neutrophils % (auto) 74.1 % (37.0-80.0); Nucleated Red Blood Cells % 0.1 %; Platelet Count (auto) 134 10^3/uL (140-450); Red Blood Cells 4.78 10^6/uL (4.5-5.90); Red Cell Distribution Width 14.6 % (11.8-14.3); White Blood Cell 10.8 10^3/uL (4.4-10.8)
--- NOTE | 2019-06-06 07:09 | NUR ---
MD HERNANDEZ AT BEDSIDE AND CLAMPED CBI FOR 1 HOUR TO SEE THE CHANGES. PASSED TO DAY SHIFT RN FABRICIO. VERBALIZED UNDERSTANDING. CONTINUE TO MONITOR.
[2019-06-06 07:20] LABS: Calcium 8.6 mg/dL (8.5-10.1); Potassium 3.5 mmol/L (3.5-5.1)
[2019-06-06 07:22] LABS: BUN/Creatinine Ratio 12.8
[2019-06-06 07:28] LABS: INR 1.06 (0.9-1.15); Partial Thromboplastin Time 30.9 sec (23.64-32.05)
--- NOTE | 2019-06-06 07:52 | NUR ---
PLATELETS: SPOKE WITH DR. ALONZO, OBTAINED TELEPHONE ORDER FOR 2 BAGS OF PLATELETS TO BE GIVEN TODAY. PHONE ORDER READ BACK AND VERIFIED, PRIMARY RN FABRICIO NOTIFIED OF NEW ORDERS, SPOKE TO BLOOD BANK TO INFORM THEM PATIENT WOULD NEED TO BAGS OF PLATELETS.
[2019-06-06] MEDS: BELLADONNA ALKAL/OPIUM (16.2/30MG) RECT SUPP PR SCH (10:00)
[2019-06-06] MEDS: MAGNESIUM OXIDE 400 MG TAB PO SCH (10:15)
[2019-06-06] MEDS: DOCUSATE SOD 100 MG CAP PO SCH ×2 (10:16→22:04)
[2019-06-06] MEDS: METOPROLOL TARTRATE 25 MG TAB PO SCH ×2 (10:17→22:04)
[2019-06-06] MEDS: FINASTERIDE 5 MG TAB PO SCH (10:17)
[2019-06-06] MEDS: LORazepam 2MG/ML-1ML VIAL IV PRN ×2 (10:19→17:53)
[2019-06-06] MEDS: BUDESONIDE (INHALATION) 0.5 MG/2 ML NEB NEB SCH ×2 (10:51→19:39)
[2019-06-06] MEDS: IPRATROPIUM BROM 0.5 MG/2.5ML INH SOL NEB PRN ×2 (10:51→19:38)
[2019-06-06] MEDS: ALBUTEROL SULF 2.5 MG/0.5ML(0.5%) NEB SOLN NEB PRN ×2 (10:51→19:39)
[2019-06-06] MEDS: OXYBUTYNIN CHL 5 MG TAB PO SCH ×2 (14:50→22:04)
--- NOTE | 2019-06-06 15:10 | NUR ---
assessment Patient is a 78 year old male who is confused. Prior to admission patient lived home with his son Thee and functioned with his assistance. Patient has a fww for home use. Per Thee patients PCP is Dr Sharp. Thee informed me patient has a home health nurse, but forgot the name of the company. Thee informed me he will call me with the name when he returns home. I informed Macy lizama will need a home health resumption on discharge. Thee verbalized understanding and agreed to discharge plan home. Addendum: 06/06/19 at 1514 by Sayda MORIN Amended: Links added.
--- NOTE | 2019-06-06 15:20 | NUR ---
Contacted [facility] case management department at [phone] regarding status of transfer but was sent to [employer]. Left message requesting information on transfer for higher level of care and my contact information. Notified nurse of the above. Will continue to followup.
--- NOTE | 2019-06-06 19:10 | NUR ---
opening shift note Assumed care of patient who is A&O x2. Disoriented to time and situation. Patient is currently on room air with no s/s of SOB or distress. Denies pain at this time. 3-way fischer catheter in place and draining to gravity. output is pink tinged. Patietn is on continuous cardiac monitoring. Bed is in low locked position and side rails are up x2. Sitter is at the bedside for patient safety. Will continue to monitor PRN.
--- NOTE | 2019-06-06 19:54 | NUR ---
Received call from lunchroom monitor tech reporting heart rate in the 160s. Patient denies chest pain at this time. Vital signs are as follows: temp: 97.5 RR: 18 HR: 107 BP: 154/78 spo2: 99% on RA. Will continue to monitor for changes.
--- NOTE | 2019-06-06 21:48 | NUR ---
Received call from business technology analyst reporting heart rate in the 200s. Patient Denies chest pain at this time. No s/s of distress. Vital signs are as follows: Temp: 97.9 RR: 19 HR: 82 BP: 153/78 Spo2: 97% on RA. EKG performed. No changes indicated as compared to previous EKG on 05/31/19. Will continue to monitor Q 1hr for changes.
[2019-06-06] MEDS: TEMAZEPAM 15 MG CAP PO PRN (22:04)
[2019-06-06] MEDS: LEVOFLOXACIN 500MG 100 ML IV SCH (22:05)
--- NOTE | 2019-06-06 23:09 | NUR ---
Patients heart rate increased to 200s. Vital signs are as follows: Temp: 98.0 RR: 24 HR: 90 BP: 144/72. Sitter reports that when patient states he feels the need to void is when his heart rate is increasing. Bladder scan performed and 141ml urine was detected in the bladder. Perdomo catheter flushed with 60ml sterile water with 55ml return of pink tinged urine. Will continue to monitor Q 1hr and PRN.
--- NOTE | 2019-06-07 00:45 | NUR ---
600 ml of pink tinged urine emptied from fischer catheter bag.
[2019-06-07] MEDS: LORazepam 2MG/ML-1ML VIAL IV PRN ×3 (01:04→15:31)
--- NOTE | 2019-06-07 02:51 | NUR ---
Bed linens changed d/t leakage of pink tinged urine around catheter. 5ml NS added to balloon to reduce leakage. There is 30ml pink tinged urine in collection bag at this time. Will continue monitoring urine output Q 1 hour.
--- NOTE | 2019-06-07 04:23 | NUR ---
30ml in urinary catheter collection bag. Bladder scan performed showing 144ml of urine in the bladder. Catheter flushed with 55ml sterile water, with 55ml return of clear pink tinged urine. patient provided water and encouraged to drink to thirst.
[2019-06-07 05:19] VITALS: BP 149/83
[2019-06-07] MEDS: OXYBUTYNIN CHL 5 MG TAB PO SCH ×3 (06:19→21:59)
[2019-06-07] MEDS: DILTIAZEM HCL 60 MG TAB PO SCH ×3 (06:19→21:58)
[2019-06-07 06:34] LABS: Basophils # (auto) 0.1 uL; Basophils % (auto) 0.5 % (0.0-2.0); Eosinophils # (auto) 0 uL; Eosinophils % (auto) 0.2 % (0.0-7.0); Hemoglobin 14.5 g/dL (13.5-17.5); Lymphocytes # (auto) 1.5 uL; Lymphocytes % (auto) 11.9 % (10.0-50.0); Mean Corpuscular Hemoglobin 30.3 pg (28.0-32.0); Mean Corpuscular Hgb Conc. 33.8 g/dL (32.0-36.0); Mean Corpuscular Volume 89.5 fL (80.0-100.0); Monocytes # (auto) 1.6 uL; Monocytes % (auto) 12.4 % (0.0-12.0); Neutrophils # (auto) 9.7 uL; Platelet Count (auto) 199 10^3/uL (140-450); Red Cell Distribution Width 14.6 % (11.8-14.3); White Blood Cell 12.9 10^3/uL (4.4-10.8)
[2019-06-07 06:40] LABS: Calcium 8.5 mg/dL (8.5-10.1); Potassium 3.7 mmol/L (3.5-5.1)
[2019-06-07 06:43] LABS: BUN/Creatinine Ratio 15.9
--- NOTE | 2019-06-07 07:35 | NUR ---
06/06/19 Dr richard requested that patient went to higher level of care and would inform Dr serna himself Bernard HOLLAND
[2019-06-07 08:33] VITALS: BP 156/109
--- NOTE | 2019-06-07 09:18 | NUR ---
PT ASSESSED FOR PRN HHN TX. PT IS ON ROOM AIR, SPO2 97%, HR 129, RR 20. NO S/S OF RESPIRATORY DISTRESS. PT AWARE TO HAVE RT PAGED IF TX INDICATED. WILL CONTINUE TO MONITOR.
[2019-06-07] MEDS: BELLADONNA ALKAL/OPIUM (16.2/30MG) RECT SUPP PR SCH (10:00)
[2019-06-07] MEDS: LEVOFLOXACIN 500MG 100 ML IV SCH (10:00)
[2019-06-07] MEDS: BUDESONIDE (INHALATION) 0.5 MG/2 ML NEB NEB SCH ×2 (10:00→19:22)
[2019-06-07] MEDS ORDERED: SODIUM CHLORIDE 0.9% 1,000 ML IV SCH (10:15)
[2019-06-07] MEDS: DOCUSATE SOD 100 MG CAP PO SCH ×2 (11:02→21:59)
[2019-06-07] MEDS: MAGNESIUM OXIDE 400 MG TAB PO SCH (11:02)
[2019-06-07] MEDS: FINASTERIDE 5 MG TAB PO SCH (11:02)
[2019-06-07] MEDS: METOPROLOL TARTRATE 25 MG TAB PO SCH ×2 (11:03→21:59)
--- NOTE | 2019-06-07 11:59 | NUR ---
Contacted [facility] case management dept regarding status of transfer. Spoke with Nuzhat who stated she is awaiting to hear back from [facility] on bed status. States she will notify me when bed is available and provide information on transportation.
[2019-06-07 13:00] VITALS: BP 128/86
[2019-06-07 17:00] VITALS: BP 135/86
[2019-06-07 20:20] VITALS: BP 157/92
[2019-06-07 20:26] VITALS: BP 157/92
--- NOTE | 2019-06-07 20:30 | NUR ---
SKYLER Nicole called [facility] to follow up on patient transfer status to [facility]. Per Nuzhat at [facility], patient has been accepted to the facility but is waiting for a call back from [facility] with a bed number so transport can be arranged but at this time there is no bed and is waiting for a call back from [facility]. Per Nuzhat, transport can go tonight or tomorrow morning but will call [facility] as soon as she hears back from [facility]. SKYLER Nicole waiting for further update on patient transfer status.
--- NOTE | 2019-06-07 20:50 | NUR ---
SKYLER Nicole Received call from [facility] with a bed number 325B, accepting Rafael Garza. RN called [facility] and spoke with Ashkan to give an update on patient transfer status and bed number. [facility] will be transferring patient.
--- NOTE | 2019-06-07 21:00 | NUR ---
SKYLER Nicole spoke with son regarding patients transfer and son approved of transfer and gave the okay for patient to be transferred. Son updated with patient new room number and location of transfer.
--- NOTE | 2019-06-07 21:40 | NUR ---
SKYLER Nicole called [facility] and spoke with Renee HOLLAND and gave report to her regarding the patient.
--- NOTE | 2019-06-07 23:24 | NUR ---
Patient transferred via [facility]. Patient comfortable and pain free at this time.
== END 2019-06-07 23:24 | disposition short-term general hospital (02) | DRG 699 ==
LOC: EDBD 12:28 → ER 12:31 → TELE 12:32 → TELE-WESTW 22:32
PROVIDERS: ADMIT Hospitalist; ATTEND Hospitalist
PROC: 0TCD8ZZ Extirpation of Matter from Urethra, Via Natural or Artificial Opening Endoscopic (ICD-10-PCS; 2019-06-03)
PROC: 30233K1 Transfusion of Nonautologous Frozen Plasma into Peripheral Vein, Percutaneous Approach (ICD-10-PCS; principal; 2019-06-05)
PROC: 30233R1 Transfusion of Nonautologous Platelets into Peripheral Vein, Percutaneous Approach (ICD-10-PCS; 2019-06-06)
DX: T83.83XA Hemorrhage due to genitourinary prosthetic devices, implants and grafts, initial encounter (principal); I50.42 Chronic combined systolic (congestive) and diastolic (congestive) heart failure; I13.0 Hypertensive heart and chronic kidney disease with heart failure and stage 1 through stage 4 chronic kidney disease, or unspecified chronic kidney disease; N30.01 Acute cystitis with hematuria; I42.9 Cardiomyopathy, unspecified; E87.6 Hypokalemia; N40.1 Benign prostatic hyperplasia with lower urinary tract symptoms; J44.9 Chronic obstructive pulmonary disease, unspecified; I48.2 Chronic atrial fibrillation; N18.2 Chronic kidney disease, stage 2 (mild); E11.22 Type 2 diabetes mellitus with diabetic chronic kidney disease; F03.90 Unspecified dementia, unspecified severity, without behavioral disturbance, psychotic disturbance, mood disturbance, and anxiety; N40.0 Benign prostatic hyperplasia without lower urinary tract symptoms; D69.6 Thrombocytopenia, unspecified; Y83.8 Other surgical procedures as the cause of abnormal reaction of the patient, or of later complication, without mention of misadventure at the time of the procedure; F17.210 Nicotine dependence, cigarettes, uncomplicated; K57.30 Diverticulosis of large intestine without perforation or abscess without bleeding; N32.89 Other specified disorders of bladder; N36.5 Urethral false passage; K80.20 Calculus of gallbladder without cholecystitis without obstruction; F41.9 Anxiety disorder, unspecified; G47.00 Insomnia, unspecified; K59.09 Other constipation; F32.9 Major depressive disorder, single episode, unspecified; I25.10 Atherosclerotic heart disease of native coronary artery without angina pectoris; R33.8 Other retention of urine; Y92.89 Other specified places as the place of occurrence of the external cause; Z79.01 Long term (current) use of anticoagulants; Z79.02 Long term (current) use of antithrombotics/antiplatelets; Z82.49 Family history of ischemic heart disease and other diseases of the circulatory system; Z83.3 Family history of diabetes mellitus; Z91.14 Patient's other noncompliance with medication regimen; Z79.899 Other long term (current) drug therapy; Z98.61 Coronary angioplasty status
CPT/HCPCS: 36415; 51702; 71045; 74176; 76705; 80048; 80053; 81001; 82962; 83615; 83735; 84484; 85025; 85045; 85610; 85730; 86850; 86900; 86901; 87081; 87086; 93005; 94640; 94761; 96365; 96375; G0378; J0696; J1956; J2250; J2405; J2704

== ENCOUNTER 2019-06-13 17:07 | Emergency (ER) | payer OTHER ==
[~2019-06-13] VITALS: Ht 177.8 cm; Wt 113.4 kg
[~2019-06-13 17:07] MED LIST changes: -DABI150C5 PO; +DONE10TA40 PO; -FURO20TA3 PO; -MAGN400T23 PO; +MET25T PO; -SENN1TAB7 PO; +SERT-376 PO; +TAM04C PO; -TAMS0.4C36 PO
[2019-06-13] MEDS ORDERED: SODIUM CHLORIDE 0.9% 1,000 ML IV ONE (18:15)
[2019-06-13 18:33] LABS: Basophils # (auto) 0.1 uL; Basophils % (auto) 0.5 % (0.0-2.0); Eosinophils # (auto) 0 uL; Eosinophils % (auto) 0.2 % (0.0-7.0); Hematocrit 42.4 % (41.0-53.0); Hemoglobin 13.9 g/dL (13.5-17.5); Lymphocytes # (auto) 1.2 uL; Lymphocytes % (auto) 8.7 % (10.0-50.0); Mean Corpuscular Hemoglobin 29.8 pg (28.0-32.0); Mean Corpuscular Hgb Conc. 32.7 g/dL (32.0-36.0); Mean Corpuscular Volume 91.3 fL (80.0-100.0); Monocytes # (auto) 1.1 uL; Monocytes % (auto) 8.1 % (0.0-12.0); Neutrophils # (auto) 10.9 uL; Neutrophils % (auto) 82.5 % (37.0-80.0); Platelet Count (auto) 292 10^3/uL (140-450); Red Blood Cells 4.65 10^6/uL (4.5-5.90); Red Cell Distribution Width 14.3 % (11.8-14.3); White Blood Cell 13.3 10^3/uL (4.4-10.8)
[2019-06-13] MEDS ORDERED: DILTIAZEM HCL 25 MG/5 ML VIAL IV ONE (18:45)
[2019-06-13] MEDS ORDERED: DILTIAZEM HCL 60 MG TAB PO ONE (18:45)
[2019-06-13 18:50] LABS: Albumin 3.1 g/dL (3.4-5.0); Anion Gap 8 (5-15); Blood Urea Nitrogen 35 mg/dL (7-18); Calcium 8.5 mg/dL (8.5-10.1); Carbon Dioxide 25 mmol/L (21-32); Chloride 108 mmol/L (98-107); Glucose 93 mg/dL (74-106); Potassium 4.2 mmol/L (3.5-5.1); Sodium 141 mmol/L (136-145)
[2019-06-13 18:56] LABS: Alanine Aminotransferase 15 U/L (16-61); Alkaline Phosphatase 50 U/L (45-117); Aspartate Aminotransferase 23 U/L (15-37); BUN/Creatinine Ratio 16.8; Bilirubin, Total 2.5 mg/dL (0.2-1.0); GFR African American 40 mL/min; GFR Non-African American 33 mL/min; Total Protein 7.6 g/dL (6.4-8.2)
[2019-06-13 21:00] VITALS: BP 120/78
== END 2019-06-13 21:47 | disposition home or self-care (01) ==
LOC: ER 17:07 → EDBD 17:07 → ER 21:47
DX: I48.2 Chronic atrial fibrillation (principal); E11.22 Type 2 diabetes mellitus with diabetic chronic kidney disease; I13.0 Hypertensive heart and chronic kidney disease with heart failure and stage 1 through stage 4 chronic kidney disease, or unspecified chronic kidney disease; N18.9 Chronic kidney disease, unspecified; I50.89 Other heart failure; J44.9 Chronic obstructive pulmonary disease, unspecified; F17.210 Nicotine dependence, cigarettes, uncomplicated; Z98.61 Coronary angioplasty status
CPT/HCPCS: 36415; 71045; 80053; 83880; 84484; 85025; 93005; 96374; 99284; J7030

== ENCOUNTER 2020-02-21 14:19 | Emergency (ER) | payer MEDICARE, OTHER ==
[2020-02-21 14:22] VITALS: BP 149/89
== END 2020-02-21 15:08 | disposition left against medical advice (07) ==
LOC: EDBD 14:19 → ER 14:19
DX: R06.02 Shortness of breath (principal); Z53.21 Procedure and treatment not carried out due to patient leaving prior to being seen by health care provider

== ENCOUNTER 2021-10-22 14:10 | Emergency (ER) | payer OTHER ==
[~2021-10-22] VITALS: Ht 182.9 cm; Wt 99.8 kg
[~2021-10-22 14:10] MED LIST changes: -DONE10TA40 PO; +DONE1TAB88 PO
[2021-10-22] MEDS ORDERED: ASPirin 81 mg TAB PO ONE (14:45)
[2021-10-22 15:13] VITALS: BP 138/98
[2021-10-23] MEDS ORDERED: NITROGLYCERIN 0.4 MG SL TAB SL ONE (10:00)
== END 2021-10-22 17:30 | disposition home or self-care (01) ==
LOC: ER 14:10 → EDBD 14:10 → ER 17:30
DX: R07.89 Other chest pain (principal); F03.90 Unspecified dementia, unspecified severity, without behavioral disturbance, psychotic disturbance, mood disturbance, and anxiety; R51.9 Headache, unspecified; J44.9 Chronic obstructive pulmonary disease, unspecified; E11.9 Type 2 diabetes mellitus without complications; I10 Essential (primary) hypertension; F17.210 Nicotine dependence, cigarettes, uncomplicated

== ENCOUNTER 2021-11-02 05:53 | Inpatient (IN) | payer OTHER ==
[~2021-11-02] VITALS: Ht 182.9 cm; Wt 68.0 kg
[2021-11-02] MEDS ORDERED: SODIUM CHLORIDE 0.9% 1,000 ML IV ONE ×2 (08:30→15:30)
[2021-11-02] MEDS ORDERED: cefTRIAXone 1GM/50ML D5W 50 ML IV ONE (08:30)
[2021-11-02] MEDS ORDERED: LORazepam 2MG/ML-1ML VIAL IV ONE ×2 (09:15→09:45)
[2021-11-02] MEDS ORDERED: dilTIAZem 25 MG/5 ML VIAL IV ONE ×2 (09:32→09:45)
[2021-11-02] MEDS ORDERED: HALOPERIDOL LACTATE 5 MG/ML INJ VIAL IM ONE (09:45)
[2021-11-02 10:43] LABS: Lactic Acid w/Reflex 6.4 mmol/L (0.4-2.0)
[2021-11-02 10:48] LABS: INR 1.4 (0.9-1.15); Partial Thromboplastin Time 25.2 sec (23.6-33.0); Potassium 4.8 mmol/L (3.5-5.1)
[2021-11-02 10:51] LABS: Amphetamine Screen, Urine NEGATIVE (NEGATIVE); Barbiturate Scree,Urine NEGATIVE (NEGATIVE); Benzodiazephine Screen, Urine NEGATIVE (NEGATIVE); Cannabinoid Screen, Urine NEGATIVE (NEGATIVE); Cocaine Screen, Urine NEGATIVE (NEGATIVE); Opiate Scree,Urine NEGATIVE (NEGATIVE); Phencyclidine Screen, Urine NEGATIVE (NEGATIVE)
[2021-11-02 10:54] LABS: Blood Alcohol < 3.0 mg/dL (0-5)
[2021-11-02] MEDS ORDERED: dilTIAZem 125mg/125ml BAG KIT 125 ML IV ONE (11:00)
[2021-11-02 11:01] LABS: Urine Bacteria NONE SEEN /hpf (None Seen); Urine Blood 2+ /uL (Negative); Urine Specific Gravity 1.021 (1.001-1.035); Urine WBC 29 /hpf (0 - 3)
[2021-11-02 11:02] LABS: Albumin 3.2 g/dL (3.4-5.0); BUN/Creatinine Ratio 21.5; Bilirubin, Total 2.2 mg/dL (0.2-1.0); Calcium 9.1 mg/dL (8.5-10.1); Total Protein 7.9 g/dL (6.4-8.2)
[2021-11-02 11:03] LABS: CRP High Sensitivity 4.14 mg/dL (< 0.3)
[2021-11-02 11:06] LABS: Basophils # (auto) 0 10 ^3/uL (0-0.2); Eosinophils # (auto) 0 10 ^3/uL (0-0.8); Lymphocytes # (auto) 0.4 10 ^3/uL (0.4-5.4); Mean Corpuscular Hemoglobin 30.1 pg (28.0-32.0); Mean Corpuscular Hgb Conc. 32.8 g/dL (32.0-36.0); Mean Corpuscular Volume 91.9 fL (80.0-100.0); Monocytes # (auto) 1.1 10 ^3/uL (0-1.3); Monocytes % (auto) 10.6 % (0.0-12.0); Neutrophils # (auto) 9.1 10 ^3/uL (1.6-8.6); Neutrophils % (auto) 85.4 % (37.0-80.0); Nucleated Red Blood Cells % 0.6 %; Red Blood Cells 6.64 10^6/uL (4.5-5.90); Red Cell Distribution Width 13.9 % (11.8-14.3); White Blood Cell 10.6 10^3/uL (4.4-10.8)
[2021-11-02] MEDS ORDERED: ACETAMINOPHEN 325 MG TAB PO PRN (15:30)
[2021-11-02] MEDS ORDERED: ONDANSETRON HCL 4 MG/2 ML VIAL IV PRN (15:30)
[2021-11-02] MEDS ORDERED: SODIUM CHLORIDE 0.9% 1,000 ML IV SCH (15:30)
[2021-11-02] MEDS: METOPROLOL TARTRATE 25 MG TAB PO SCH ×2 (16:00→22:00)
[2021-11-02] MEDS: METOPROLOL TARTRATE 1MG/1ML-5ML VIAL IV PRN ×2 (16:09→22:32)
[2021-11-02 17:20] LABS: Creatine Kinase IFCC 1285 U/L (39-308)
[2021-11-02] MEDS: SOD CHL 0.45% 1,000 ML IV SCH (17:35)
[2021-11-02 23:15] LABS: Protein, Urine 125.7 mg/dL (0.0-11.9)
[2021-11-03] MEDS: METOPROLOL TARTRATE 1MG/1ML-5ML VIAL IV PRN ×5 (01:30→17:57)
[2021-11-03] MEDS: SOD CHL 0.45% 1,000 ML IV SCH ×3 (02:56→20:00)
[2021-11-03] MEDS ORDERED: HALOPERIDOL LACTATE 5 MG/ML INJ VIAL IM ONE (03:45)
[2021-11-03] MEDS ORDERED: HALOPERIDOL LACTATE 5 MG/ML INJ VIAL ONE (03:51)
[2021-11-03 05:08] LABS: Basophils # (auto) 0 10 ^3/uL (0-0.2); Basophils % (auto) 0.1 % (0.0-2.0); Eosinophils # (auto) 0 10 ^3/uL (0-0.8); Lymphocytes # (auto) 0.7 10 ^3/uL (0.4-5.4); Nucleated Red Blood Cells % 0.1 %; White Blood Cell 14.7 10^3/uL (4.4-10.8)
[2021-11-03 05:10] LABS: Hemoglobin 17.6 g/dL (13.5-17.5); Lymphocytes % (auto) 4.7 % (10.0-50.0); Mean Corpuscular Hemoglobin 30.4 pg (28.0-32.0); Mean Corpuscular Hgb Conc. 33.1 g/dL (32.0-36.0); Mean Corpuscular Volume 91.7 fL (80.0-100.0); Monocytes # (auto) 1.4 10 ^3/uL (0-1.3); Monocytes % (auto) 9.3 % (0.0-12.0); Neutrophils # (auto) 12.6 10 ^3/uL (1.6-8.6); Neutrophils % (auto) 85.9 % (37.0-80.0); Red Blood Cells 5.78 10^6/uL (4.5-5.90); Red Cell Distribution Width 14.2 % (11.8-14.3)
[2021-11-03 05:30] LABS: Potassium 4.3 mmol/L (3.5-5.1)
[2021-11-03 05:44] LABS: Albumin 2.7 g/dL (3.4-5.0); BUN/Creatinine Ratio 24.9; Bilirubin, Direct 0.3 mg/dL (0-0.2); Calcium 8.4 mg/dL (8.5-10.1); Total Protein 6.7 g/dL (6.4-8.2)
[2021-11-03 05:46] LABS: Lactic Acid w/Reflex 2.3 mmol/L (0.4-2.0)
[2021-11-03 06:21] LABS: Bilirubin, Total 1.1 mg/dL (0.2-1.0)
[2021-11-03] MEDS: METOPROLOL TARTRATE 25 MG TAB PO SCH ×2 (09:10→22:45)
[2021-11-03] MEDS ORDERED: SODIUM CHLORIDE 0.9% 1,000 ML IV ONE (12:00)
[2021-11-03] MEDS ORDERED: AMIODARONE HCL 150 MG in D5W 5% 100 ML IV ONE (21:45)
[2021-11-03] MEDS ORDERED: AMIODARONE 450mg/250ml AE 250 ML IV SCH (22:00)
[2021-11-03] MEDS: HALOPERIDOL LACTATE 5 MG/ML INJ VIAL IM PRN (22:21)
[2021-11-03] MEDS ORDERED: AMIODARONE HCL (50 MG/ ML) 3 ML VIAL IV ONE (22:26)
[2021-11-03 22:41] LABS: Folate (Folic Acid) 7.14 ng/mL (5.38-24)
[2021-11-03] MEDS: MIRTAZAPINE 30 MG TAB PO SCH (22:45)
[2021-11-04] MEDS ORDERED: AMIODARONE 450mg/250ml AE 250 ML IV SCH (04:00)
[2021-11-04] MEDS: SOD CHL 0.45% 1,000 ML IV SCH ×4 (07:45→19:52)
[2021-11-04] MEDS ORDERED: SODIUM CHLORIDE 0.9% 1,000 ML IV ONE (10:30)
[2021-11-04] MEDS: METOPROLOL TARTRATE 25 MG TAB PO SCH ×2 (10:30→22:00)
[2021-11-04] MEDS: HALOPERIDOL LACTATE 5 MG/ML INJ VIAL IM PRN (11:00)
[2021-11-04] MEDS: AMIODARONE HCL 200 MG TAB PO SCH ×2 (11:15→22:00)
[2021-11-04 11:17] LABS: Hepatitis C Antibody Negative (Negative)
[2021-11-04] MEDS ORDERED: LORazepam 2MG/ML-1ML VIAL IV PRN (12:00)
[2021-11-04] MEDS: MIRTAZAPINE 30 MG TAB PO SCH (22:00)
[2021-11-05 01:49] LABS: Basophils # (auto) 0 10 ^3/uL (0-0.2); Basophils % (auto) 0.1 % (0.0-2.0); Eosinophils # (auto) 0 10 ^3/uL (0-0.8); Hematocrit 48.2 % (41.0-53.0); Hemoglobin 15.7 g/dL (13.5-17.5); Lymphocytes # (auto) 0.4 10 ^3/uL (0.4-5.4); Lymphocytes % (auto) 5.3 % (10.0-50.0); Mean Corpuscular Hemoglobin 29.8 pg (28.0-32.0); Mean Corpuscular Hgb Conc. 32.6 g/dL (32.0-36.0); Mean Corpuscular Volume 91.4 fL (80.0-100.0); Monocytes # (auto) 0.9 10 ^3/uL (0-1.3); Monocytes % (auto) 10.8 % (0.0-12.0); Neutrophils # (auto) 6.9 10 ^3/uL (1.6-8.6); Neutrophils % (auto) 83.8 % (37.0-80.0); Red Blood Cells 5.27 10^6/uL (4.5-5.90); Red Cell Distribution Width 13.9 % (11.8-14.3); White Blood Cell 8.3 10^3/uL (4.4-10.8)
[2021-11-05 02:15] LABS: BUN/Creatinine Ratio 28.2; Calcium 8.1 mg/dL (8.5-10.1); Magnesium 2.5 mg/dL (1.6-2.6); Potassium 4.1 mmol/L (3.5-5.1)
[2021-11-05] MEDS: SOD CHL 0.45% 1,000 ML IV SCH ×2 (04:04→12:06)
[2021-11-05] MEDS ORDERED: MORPHINE SULFATE INJECTION 2 MG/ML SYRG IV PRN (05:45)
[2021-11-05] MEDS: HALOPERIDOL LACTATE 5 MG/ML INJ VIAL IM PRN ×2 (06:12→11:47)
[2021-11-05] MEDS: LORazepam 2MG/ML-1ML VIAL IV PRN ×2 (06:12→11:48)
[2021-11-05] MEDS ORDERED: AMIO200T4 PO (09:35)
[2021-11-05] MEDS ORDERED: MIR30T PO (09:35)
[2021-11-05] MEDS: METOPROLOL TARTRATE 25 MG TAB PO SCH (10:00)
[2021-11-05] MEDS: AMIODARONE HCL 200 MG TAB PO SCH (10:00)
[2021-11-05] MEDS: METOPROLOL TARTRATE 1MG/1ML-5ML VIAL IV PRN (11:50)
[2021-11-05] MEDS ORDERED: SOD CHL 0.45% 1,000 ML IV SCH (18:30)
[2021-11-05 22:30] VITALS: BP 147/93
== END 2021-11-05 22:31 | disposition hospice, home (50) | DRG 871 ==
LOC: ER 05:53 → EDBD 05:53 → TELE 15:23
PROVIDERS: ADMIT Internal Medicine; ATTEND Internal Medicine
PROC: 05H933Z Insertion of Infusion Device into Right Brachial Vein, Percutaneous Approach (ICD-10-PCS; principal; 2021-11-02)
PROC: B54MZZA Ultrasonography of Right Upper Extremity Veins, Guidance (ICD-10-PCS; 2021-11-02)
DX: A41.89 Other specified sepsis (principal); G93.41 Metabolic encephalopathy; U07.1 COVID-19; I21.4 Non-ST elevation (NSTEMI) myocardial infarction; J12.82 Pneumonia due to coronavirus disease 2019; N17.0 Acute kidney failure with tubular necrosis; N39.0 Urinary tract infection, site not specified; I13.0 Hypertensive heart and chronic kidney disease with heart failure and stage 1 through stage 4 chronic kidney disease, or unspecified chronic kidney disease; J44.0 Chronic obstructive pulmonary disease with (acute) lower respiratory infection; M62.82 Rhabdomyolysis; I48.91 Unspecified atrial fibrillation; E11.22 Type 2 diabetes mellitus with diabetic chronic kidney disease; E86.0 Dehydration; E88.09 Other disorders of plasma-protein metabolism, not elsewhere classified; F02.80 Dementia in other diseases classified elsewhere, unspecified severity, without behavioral disturbance, psychotic disturbance, mood disturbance, and anxiety; N18.9 Chronic kidney disease, unspecified; F17.210 Nicotine dependence, cigarettes, uncomplicated; G30.9 Alzheimer's disease, unspecified; I50.9 Heart failure, unspecified; Z79.899 Other long term (current) drug therapy
CPT/HCPCS: 36415; 70450; 71045; 76775; 80048; 80053; 80076; 80307; 80320; 81001; 82140; 82306; 82550; 82570; 82607; 82728; 82746; 83605; 83735; 83880; 83970; 84100; 84156; 84300; 84443; 84484; 85025; 85610; 85730; 86141; 86803; 87040; 87340; 87426; 93005; 93306; 96365; 96367; 96372; 96375; 99291; A4565; G0378; J0696; J7060